=== PATIENT | male | born 1945 | race Caucasian/White ===

== ENCOUNTER 2017-07-29 10:24 | Inpatient (IN) ==
--- NOTE | 2017-07-28 16:22 | Discharge Summary ---
<Nieves Horowitz E - Last Filed: 07/28/17 16:20> Date of Encounter: 07/28/17 - Discharge Diagnosis (1) Rotator cuff tear arthropathy of right shoulder Priority: Primary Status: Chronic (2) Diabetes mellitus Priority: Secondary Status: Chronic Qualifiers: Diabetes mellitus type: type 2 Diabetes mellitus complication status: with unspecified complications Diabetes mellitus manager long term care insulin use: without assisted use Qualified Code(s): E11.8 - Type 2 diabetes mellitus with unspecified complications (3) HTN (hypertension) Priority: Secondary Status: Chronic Qualifiers: Hypertension type: unspecified Qualified Code(s): I10 - Essential (primary ) hypertension (4) MARIA ANTONIA on CPAP Priority: Secondary Status: Chronic (5) COPD (chronic obstructive pulmonary disease) Priority: Secondary Status: Chronic Qualifiers: COPD type: unspecified COPD Qualified Code(s): J44.9 - Chronic obstructive pulmonary disease, unspecified (6) CAD (coronary artery disease) Priority: Secondary Status: Chronic Qualifiers: Coronary Disease-Associated Artery/Lesion type: unspecified vessel or lesion type [place] vs. 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 - Discharge Medications Home Medications: OxyCODONE Immed Rel [Roxicodone 5 MG] 5 mg PO Q6HR PRN 7 Days #28 tablet [Rx] Acetaminophen [Tylenol Arthritis] 1,300 mg PO HS 07/29/17 [History] Acetylcysteine [Nac] 600 mg PO BID 07/29/17 [History] Albuterol Sulfate [Albuterol Inhaler] 2 puff IH Q4H PRN 07/29/17 [History] Aspirin/Calcium Carbonate/Mag [Aspirin Buffered 325 mg Tab] 325 mg PO DAILY [History] Atorvastatin Calcium [Lipitor] 20 mg PO QPM 07/29/17 [History] Budesonide/Formoterol 160/4.5 [Symbicort 160/4.5] 2 puff IH BID 07/29/17 [ History] Cholecalciferol (D-3) [Vitamin D] 1,000 unit PO DAILY 07/29/17 [History] Citalopram Hydrobromide [Citalopram HBr] 20 mg PO DAILY 07/29/17 [History] Furosemide [Lasix] 20 mg PO BID 07/29/17 [History] Hyoscyamine Sulfate 0.125 mcg PO TID 07/29/17 [History] Ipratropium/Albuterol Neb [Duoneb] 3 ml IH QID PRN 07/29/17 [History] Mecobal/Levomefolat Ca/B6 Phos [Foltanx Tablet] 1 tab PO DAILY 07/29/17 [History ] Multivit-Min/FA/Vit K/Lycopene [Hm Mens 50+ Advanced One Daily] 1 tab PO DAILY 07/29/17 [History] [place]-3/Dha/Epa/Fish Oil [Fish Oil 1,000 mg Softgel] 1,000 mg PO DAILY 07/29/17 [History] Pantoprazole Sodium [Protonix] 40 mg PO DAILY 07/29/17 [History] Pioglitazone HCl 30 mg PO DAILY 07/29/17 [History] Ramipril [Altace] 10 mg PO DAILY 07/29/17 [History] Triamcinolone Acetonide 1 appl TP BID 07/29/17 [History] clonazePAM [Klonopin] 0.5 mg PO BID 07/29/17 [History] Allergies/Adverse Reactions: 3 Allergy/AdvReac Type Severity Reaction Status Date / Time succinylcholine Allergy See Verified 07/29/17 11:06 [From Anectine] Comments Primary care physician: PCP NONE - Patient Status Disposition: Home Health Service Condition: Good - Discharge Instructions Follow Up With: NONE,PCP [Non-Partnered Physician] - - Hospital Course Hospital course: Mr. Hoyt is a 72 year old male - Time Spent with Patient Total time spent providing and/or coordinating discharge services: <Freedom Rivero - Last Filed: 07/30/17 06:52> Date of Encounter: 07/30/17 Time of Encounter: 06:52 - Discharge Diagnosis (1) Rotator cuff tear arthropathy of right shoulder Priority: Primary Status: Chronic (2) Diabetes mellitus Priority: Secondary Status: Chronic Qualifiers: Diabetes mellitus type: type 2 Diabetes mellitus complication status: with unspecified complications Diabetes mellitus manager long term care insulin use: without manager long term care use Qualified Code(s): E11.8 - Type 2 diabetes mellitus with unspecified complications (3) HTN (hypertension) Priority: Secondary Status: Chronic Qualifiers: Hypertension type: unspecified Qualified Code(s): I10 - Essential (primary ) hypertension (4) MARIA ANTONIA on CPAP Priority: Secondary Status: Chronic (5) COPD (chronic obstructive pulmonary disease) Priority: Secondary Status: Chronic Qualifiers: COPD type: unspecified COPD Qualified Code(s): J44.9 - Chronic obstructive pulmonary disease, unspecified (6) CAD (coronary artery disease) Priority: Secondary Status: Chronic Qualifiers: Coronary Disease-Associated Artery/Lesion type: [place] artery [place] vs. 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 Hoyt is a 72 year old male Status post right total shoulder replacement The patient had an uneventful postoperative course. They received antibiotics and physical therapy and were discharged in stable condition. There will follow -up in the office in 2 weeks. - Time Spent with Patient Total time spent providing and/or coordinating discharge services:
--- NOTE | 2017-07-28 16:25 | Physician Discharge Referral ---
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 For more information, call the [place] [employer] Quit Line at 1-496-UWWI-NOW. - Dressing/Wound Care Site: right shoulder Type of Dressing/Treatments w/Frequency: Opsite placed. Keep dressing intact until first follow up appointment. If > 50% saturated, notify office, remove dressing and place appropriate dressing back in place. Leave Zipline intact. Opsite dressing is water resistant, not water- proof. OK to shower, but do not get dressing wet. - Diet/Nutrition Diet/Nutrition Orders: Regular - Activity Activity Orders: Up ad savana, Ambulate, Chair, Walker Activity: List: PT/OT. NWB to affected upper extremity. Follow Shoulder Precautions x 6 weeks. Stay in brace during activity and at night. Remove brace during exercises. ICE and elevate extremity frequently throughout the day. - Services Needed Following services are medically necessary services: Nursing, Home Health Aide, Physical Therapy, Occupational Therapy, Med Social Work - Transfer Medications Prescriptions: OxyCODONE Immed Rel [Roxicodone 5 MG] 5 mg PO Q6HR PRN 7 Days #28 tablet PRN Reason: Pain Home Medications: Acetylcysteine [Nac] 10/20/16 [History] Aspirin [Ecotrin] 10/20/16 [History] Atorvastatin Calcium [Lipitor] 10/20/16 [History] Citalopram 10/20/16 [History] Clonazepam 10/20/16 [History] Daliresp 10/20/16 [History] Diclofenac Sodium [Voltaren] 10/20/16 [History] Fish Oil 10/20/16 [History] Foltanx Tablet 10/20/16 [History] Furosemide [Lasix] 40 mg PO DAILY #15 tablet 10/20/16 [Rx] Ipratropium/Albuterol Neb 10/20/16 [History] Levsin 10/20/16 [History] Miralax. 10/20/16 [History] Nexium 10/20/16 [History] One Daily Tablet 10/20/16 [History] Oxygen 10/20/16 [History] Pioglitazone HCl 10/20/16 [History] Proair Hfa 10/20/16 [History] Ramipril 10/20/16 [History] Symbicort 160/4.5 10/20/16 [History] Triamcinolone Acet 0.1% CRM 10/20/16 [History] Tylenol Arthritis 10/20/16 [History] Vision. 10/20/16 [History] OxyCODONE Immed Rel [Roxicodone 5 MG] 5 mg PO Q6HR PRN 7 Days #28 tablet [Rx] Allergies/Adverse Reactions: 3 Allergy/AdvReac Type Severity Reaction Status Date / Time succinylcholine Allergy See Verified 11/17/15 07:39 [From Anectine] Comments Certification: Further, I certify that my clinical findings support that this patient is homebound (i.e. absences from home require considerable and taxing effort and are for medical reasons or [employer] services or infrequently or short duration when for other reasons) because: Homebound Reason: Post-surgery restriction and or conditions limit ability to leave home Attestation: My signature below is to certify that this patient is under my care and that I, or nurse practitioner, or a physician bilingual executive assistant working with me, has a face-to- face encounter with this patient.
[2017-07-29] MEDS ORDERED: *HR* Midazolam HCl 2 MG/2 ML VIAL ONE (10:27)
[2017-07-29] MEDS ORDERED: *HR* FentaNYL (PF) 100 MCG/2 ML VIAL ONE (10:27)
--- NOTE | 2017-07-29 10:27 | History & Physical Report ---
Date of Encounter: 07/29/17 Time of Encounter: 10:27 24 Hour HP Update - Instructions Instructions: If the History and Physical is less than 30 days old and was completed prior to A.M. admission and or procedure and has NOT been updated on calendar day of procedure please complete this update prior to performing procedure. - Update Patient reports changes in Medical Condition: No Changes in examination, assessment, or condition: No Changes in Medication: No Preop tests/diagnostics Reviewed: Yes Surgery Remains Indicated: Yes Consent for Planned Operative Procedure(s) Verified: Yes - Pre-Operative Checklist Preoperative Checklist Indicated: No Prophylactic Antibiotic Ordered: Yes Is VTE Prophylaxis Indicated?: Yes
[2017-07-29] MEDS ORDERED: *HR* Propofol 200 MG/20 ML VIAL IVP ONE (10:30)
[2017-07-29] MEDS ORDERED: Lidocaine -MPF 2% 2 ML VIAL ONE (10:36)
[2017-07-29] MEDS ORDERED: Dexamethasone 4 MG/ML VIAL ONE ×2 (10:36→12:48)
[2017-07-29] MEDS ORDERED: Ondansetron 4 MG/2 ML VIAL ONE (10:36)
[2017-07-29] MEDS ORDERED: ROPIVACAINE HCL/PF 0.5% 30 ML VIAL ONE (10:42)
[2017-07-29] MEDS ORDERED: Albuterol 2.5 MG/3 ML NEBULIZER ONE (11:07)
[2017-07-29] MEDS ORDERED: CeFAZolin Syr 2,000MG/20 ML 2,000 MG/20 ML SYRINGE IVPB ONE (11:08)
[2017-07-29] MEDS ORDERED: Albuterol 2.5 MG/3 ML NEBULIZER IH ONE (11:08)
[2017-07-29] MEDS ORDERED: Lidocaine -MPF 1% 2 ML VIAL ID ONE (11:08)
--- NOTE | 2017-07-29 11:10 | Anesthesia Evaluation PreOp ---
Date of Encounter: 07/29/17 Time of Encounter: 11:10 - Past History Planned Operation: Right Total Shoulder Cardiac History: HTN, Hyperlipidemia, Other (CAD) Pulmonary History: COPD, MARIA ANTONIA Dx (CPAP) TELE RN History: Denies Any Significant HX Other Medical History: Diabetes Type II, GERD, Other Anesthesia History: Past Anesthesia (EGD, Eye sx, Knee repair, CTR, cardiac ablation), Problems (Hard to wake up) Alcohol Use: none Drug use: none Medications and Allergies OxyCODONE Immed Rel [Roxicodone 5 MG] 5 mg PO Q6HR PRN 7 Days #28 tablet [Rx] Acetaminophen [Tylenol Arthritis] 1,300 mg PO HS 07/29/17 [History] Acetylcysteine [Nac] 600 mg PO BID 07/29/17 [History] Albuterol Sulfate [Albuterol Inhaler] 2 puff IH Q4H PRN 07/29/17 [History] Aspirin/Calcium Carbonate/Mag [Aspirin Buffered 325 mg Tab] 325 mg PO DAILY [History] Atorvastatin Calcium [Lipitor] 20 mg PO QPM 07/29/17 [History] Budesonide/Formoterol 160/4.5 [Symbicort 160/4.5] 2 puff IH BID 07/29/17 [ History] Cholecalciferol (D-3) [Vitamin D] 1,000 unit PO DAILY 07/29/17 [History] Citalopram Hydrobromide [Citalopram HBr] 20 mg PO DAILY 07/29/17 [History] Furosemide [Lasix] 20 mg PO BID 07/29/17 [History] Hyoscyamine Sulfate [Hyoscyamine Sulfate] 0.125 mcg PO TID 07/29/17 [History] Ipratropium/Albuterol Neb [Duoneb] 3 ml IH QID PRN 07/29/17 [History] Mecobal/Levomefolat Ca/B6 Phos [Foltanx Tablet] 1 tab PO DAILY 07/29/17 [History ] Multivit-Min/FA/Vit K/Lycopene [Hm Mens 50+ Advanced One Daily] 1 tab PO DAILY 07/29/17 [History] [place]-3/Dha/Epa/Fish Oil [Fish Oil 1,000 mg Softgel] 1,000 mg PO DAILY 07/29/17 [History] Pantoprazole Sodium [Protonix] 40 mg PO DAILY 07/29/17 [History] Pioglitazone HCl [Pioglitazone HCl] 30 mg PO DAILY 07/29/17 [History] Ramipril [Altace] 10 mg PO DAILY 07/29/17 [History] Triamcinolone Acetonide 1 appl TP BID 07/29/17 [History] clonazePAM [Klonopin] 0.5 mg PO BID 07/29/17 [History] 3 Allergy/AdvReac Type Severity Reaction Status Date / Time succinylcholine Allergy See Verified 07/29/17 11:06 [From Anectine] Comments - Meds/Allergy Pre-op Review Medications Reviewed: Yes Allergies Reviewed: Yes Beta Blockers on Current Med List: No Anesthesia Results - Labs Echocardiogram Name: Weston Hoyt Date of Study: 11/08/2016 Impressions: Normal LV systolic function, LVEF 60-65%. Mild concentric left ventricular hypertrophy. Mild left ventricular diastolic dysfunction. Normal right ventricular size and function. No significant valvular dysfunction. No evidence of pulmonary hypertension. Laboratory Tests 07/05/17 07/05/17 07/05/17 11:10 11:10 11:10 WBC 6.5 Hgb 14.3 Hct 45.1 Plt Count 208 INR 1.0 Sodium 140 Potassium 4.1 Chloride 104 Carbon Dioxide 29 BUN 14 Creatinine 0.92 - Imaging EKG: report reviewed (SR) Anesthesia Exam O2 Sat Height 1.63 m Height 1.63 m Weight 87.543 kg Weight 87.543 kg O2 Sat by Pulse Oximetry 96 Vital Signs Temp Pulse Resp BP Pulse Ox 98.4 F 57 18 144/77 96 07/29/17 10:53 07/29/17 10:53 07/29/17 10:53 07/29/17 10:53 07/29/17 10:53 Height: 5'4'' Weight: 193# NPO (# of Hours): > 8 hrs Pain Scale: 0 Pain Scale Used: Numeric (1 - 10) - HEENT Pupil (Motor): Pupils equal, EOMI Mallampati: III Teeth: Normal Oral Opening: Greater than 3 - TELE RN LOC: Oriented TELE RN Motor: Normal RUE, Normal LUE, Normal RLE, Normal LLE, Normal Face TELE RN Sensory: Normal: RUE, LUE, RLE, LLE, Face - Cardiac Rhythm: Regular Murmur: None JVD: No Carotid Bruit: No - Pulmonary Breath Sounds: bilateral Clear Respiratory Effort: Symmetrical Anesthesia Assess/Plan ASA Score: 3 Modified [place] Scale for Level of Consciousness: Cooperative, oriented, and tranquil Anesthetic Plan: General, Regional (Right Brachial Plexus Block) Autologous Blood: Yes Monitoring Plan: Standard Monitors Recovery Plan: PACU
[2017-07-29] MEDS ORDERED: Plasma-Lyte A (PH 7.4) 1,000 ML IVC SCH (11:15)
[2017-07-29] MEDS ORDERED: Acetaminophen IV 1,000 MG/100 ML INFUS..BTL ONE (11:41)
[2017-07-29] MEDS ORDERED: *HR* Labetalol 20 MG/4 ML SYRINGE IVP PRN (11:50)
[2017-07-29] MEDS ORDERED: *HR* Promethazine 25 MG/ML VIAL IVP PRN (11:50)
[2017-07-29] MEDS ORDERED: *HR* HYDROmorphone (PF) 1 MG/ML SYRINGE IVP PRN ×2 (11:50→15:23)
--- NOTE | 2017-07-29 11:56 | Anesthesia Procedures ---
Date of Encounter: 07/29/17 Time of Encounter: 11:45 Procedures: Anesthesia - Nerve Block Procedure Date: 07/29/17 Time: 11:45 Allergies/Adv Reactions: succinylcholine Pre-op Diagnosis: Right Shoulder Rotator Cuff Arthropathy Surgical Procedure: Total Shoulder Replacement, Reverse Bal and Socket Checklist: Correct Patient Identifier, Correct procedure, History checked Correct side: Right Blood Thinner: No Monitor Applied: EKG, BP, Pulse Oximetry Supplemental Oxygen via Nasal Cannula (L/min): 2 Sedation: Fentanyl (mcg): 100 Indication: Post Op Analgesia Pre-op Neuro Deficits: No Block Type: Interscalene Catheter placed: No Sterile Technique: Yes Ultrasound used: Yes Anatomy identified: Yes Visual spread of Local: Yes Neuro Stimulation: No Blood on Needle Aspiration: No Smooth Injection of Local: Yes Pain with Injection of Local: No Prep: Chlorhexadine Needle: 22 x 50 mm Stimuplex Local: Ropivacaine, Other (Ropivicaine 0.5% with 8mg decadron (25ml) total) Volume (cc): 25 Number of Attempts: 1 Complications: None/effective block Vitals: Last Vital Signs Temp 98.4 F 07/29/17 10:53 Pulse 69 07/29/17 11:46 Resp 16 07/29/17 11:46 BP 149/70 07/29/17 11:46 Pulse Ox 98 07/29/17 11:46
[2017-07-29] MEDS ORDERED: EPHEDrine 50 MG/ML VIAL ONE (12:31)
--- NOTE | 2017-07-29 13:13 | Orthopedic Operative Note ---
Date of procedure: 07/29/17 Pre-op diagnosis: Right shoulder cuff tear arthropathy Post-op diagnosis: same Procedure: Procedure: Total Shoulder Replacment Reverse, right Estimated blood loss: 100 cc Hardware: Metal and polyethylene replacement: Arthrex large glenoid baseplate, 2 4.5 screws. 1 6.5 screw, 42+4 glenosphere, 7 humeral stem, poly insert 6 Exam Under anesthesia: Full motion and no instability. Procedural Notes: Irreparable tear supraspinatus tendon. Operative procedure: The patient was brought to the operating room and placed on the operating room table. After general anesthesia was administered the operative shoulder was examined. Findings were noted. The patient was placed in the modified beachchair position. All pressure points were padded appropriately. And the head was stabilized in the neutral position. The operative extremity was prepped and draped in the sterile surgical fashion. The patient received IV antibiotics prior to skin incision. A standard deltopectoral approach was made to the operative shoulder. Incision was made to the skin and subcutaneous tissue,hemo stasis was obtained with Bovie cautery. Using careful blunt dissection the cephalic vein was identified and mobilized medially. The deltopectoral interval was developed and the clavipectoral fascia was incised. The subscap was released off the lesser tuberosity and tagged with #2 FiberWire suture subscap was irreparable. The humerus was dislocated patient noted to have irreparable tear supraspinatus tendon, and the humeral cut was made along the anatomic neck. Anterior and posterior Bankart retractors were placed to expose the glenoid. The glenoid guide was seated and the centering hole was made. It was reamed with the appropriate reamer. The large baseplate was seated and secured with (2) 4.5 screws and one 6.5 screw. The baseplate was irrigated and dried and the 2+4 Glenosphere was seated and secured with the James taper. The James taper was tested and found to be secure the humerus was redislocated and prepared with the diaphyseal reamers, followed by a broaching process up to the appropriate size 7 in the patient's anatomic version. The metaphyseal reamer was then utilized. Trial reduction found the shoulder to be relocatable. Trial components were removed and d The appropriate 7 stem was impacted in place in the patient's anatomic version. Trial reduction found the shoulder to be relocatable and stable with the appropriate 6. Trial component was removed and the real 6 Nikki was seated and secured the shoulder was reduced. The shoulder had excellent motion and excellent stability and no evidence of dislocation. The deep tissue was irrigated with pulse irrigation. The PA closed the shoulder. The deltopectoral interval was closed with a running #1 PDS suture, subcutaneous tissue was irrigated and closed with 0 PDS suture, the skin was closed with Dermabond. The patient was placed in a sterile dressing, abduction brace and extubated. The patient was then transferred to the recovery room in stable condition. Anesthesia: WAN Surgeon: Freedom Rivero Condition: stable Disposition: PACU
[2017-07-29 14:12] LABS: Hematocrit 40.2 % (37.5-50.1)
--- NOTE | 2017-07-29 14:32 | Anesthesia Evaluation Post Op ---
Date of Encounter: 07/29/17 Time of Encounter: 14:32 - Vital Signs Vital Signs: Vital Signs/O2 Sat, Most Current Temp Pulse Resp BP Pulse Ox 97.0 F L 78 16 114/61 95 07/29/17 14:27 07/29/17 14:27 07/29/17 14:27 07/29/17 14:27 07/29/17 14:27 - Lungs Lungs: Clear Ascult./Percussion - Airway Airway: Non-obstructed - Cardiovascular Regular Rate - Mental Status Mental Status: Alert & Oriented, Answers Appropriately - Pain Pain Scale: 0 Pain Scale used: Numeric (1 - 10) - Nausea Vomiting Nausea Vomiting: Not Present - Hydration Hydration: Tolerates oral liquids, Has not voided - Discharge PostOp Status: Transfer Patient to floor
[2017-07-29] MEDS ORDERED: Ringers Solution, Lactated 1,000 ML IVC SCH (15:23)
[2017-07-29] MEDS ORDERED: Sennosides 8.6 MG TABLET PO PRN (15:23)
[2017-07-29] MEDS ORDERED: Naloxone 0.4 MG/ML INJ IVP PRN (15:23)
[2017-07-29] MEDS ORDERED: D5% in Water 1,000 ML IVC PRN (15:23)
[2017-07-29] MEDS ORDERED: Temazepam 15 MG CAPSULE PO PRN (15:23)
[2017-07-29] MEDS ORDERED: MOM Conc 10 ML UD.LIQ PO PRN (15:23)
[2017-07-29] MEDS ORDERED: *HR* Dextrose 50 % in Water (Syg) 50 ML SYRINGE IVP PRN (15:23)
[2017-07-29] MEDS ORDERED: *HR* OxyCODONE Immed Rel 5 MG TABLET PO PRN ×2 (15:23)
[2017-07-29] MEDS ORDERED: Ondansetron 4 MG/2 ML VIAL IVP PRN (15:23)
[2017-07-29] MEDS ORDERED: Dextrose Gel 15 GM PO PRN ×2 (15:23)
[2017-07-29] MEDS: Insulin LISPRO 300 UNITS/3 ML VIAL SQ SCH ×2 (16:52→16:58)
[2017-07-29] MEDS: CeFAZolin Premix DUPLEX 2,000 MG/50 ML BAG IVPB SCH ×2 (16:56→23:43)
[2017-07-29] MEDS: Furosemide 20 MG TABLET PO SCH ×2 (16:58)
[2017-07-29] MEDS: *HR* Enoxaparin 30 MG/0.3 ML SYRINGE SQ SCH (16:59)
[2017-07-29] MEDS ORDERED: Ipratropium/Albuterol Neb 3 ML IH PRN (17:00)
[2017-07-29] MEDS ORDERED: *HR* Enoxaparin 30 MG/0.3 ML SYRINGE SQ SCH (18:00)
[2017-07-29] MEDS: Hyoscyamine SL 0.125 MG TAB.SUBL PO SCH ×2 (19:19→20:57)
[2017-07-29] MEDS: Budesonide/Formoterol 160/4.5 MDI IH SCH ×2 (20:38)
[2017-07-29] MEDS: clonazePAM 0.5 MG TABLET PO SCH (20:57)
[2017-07-29] MEDS: TRIAMCINOLONE ACETONIDE TP SCH (20:58)
[2017-07-29] MEDS ORDERED: *HR* Acetylcysteine 20% 600 MG/3 ML ORAL SYRINGE PO SCH (21:00)
[2017-07-29] MEDS ORDERED: Insulin LISPRO 300 UNITS/3 ML VIAL SQ SCH (21:00)
[2017-07-30] MEDS: *HR* Enoxaparin 30 MG/0.3 ML SYRINGE SQ SCH (06:10)
[2017-07-30 06:47] VITALS: BP 131/79
--- NOTE | 2017-07-30 06:53 | Orthopedics Progress Note ---
Date of Encounter: 07/30/17 Time of Encounter: 06:52 - Assessment and Plan (1) Rotator cuff tear arthropathy of right shoulder Current Visit: No Status: Chronic (2) Diabetes mellitus Current Visit: No Status: Chronic Qualifiers: Diabetes mellitus type: type 2 Diabetes mellitus complication status: with unspecified complications Diabetes mellitus superintendent container terminal insulin use: without superintendent container terminal use Qualified Code(s): E11.8 - Type 2 diabetes mellitus with unspecified complications (3) HTN (hypertension) Current Visit: No Status: Chronic Qualifiers: Hypertension type: unspecified Qualified Code(s): I10 - Essential (primary ) hypertension (4) MARIA ANTONIA on CPAP Current Visit: No Status: Chronic (5) COPD (chronic obstructive pulmonary disease) Current Visit: No Status: Chronic Qualifiers: COPD type: unspecified COPD Qualified Code(s): J44.9 - Chronic obstructive pulmonary disease, unspecified (6) CAD (coronary artery disease) Current Visit: No Status: Chronic Qualifiers: Coronary Disease-Associated Artery/Lesion type: [place] artery [place] vs. 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 Afebrile vital signs stable. Operative extremity: Neurovascularly intact Dressing clean dry and intact Calves nontender Assessment and plan: Continue with postoperative care Discharged today Objective Vital signs: Vital Signs Temp Pulse Resp BP Pulse Ox 07/30/17 06:45 98.1 F 65 18 131/79 93 07/30/17 04:03 97.8 F 65 15 126/70 94 07/29/17 23:59 97.6 F 71 18 115/66 93 07/29/17 20:38 17 93 07/29/17 19:50 98.3 F 76 17 109/48 93 07/29/17 17:03 97.7 F 75 16 126/65 93 07/29/17 15:40 92 07/29/17 15:35 97.7 F 76 14 116/60 92 07/29/17 15:00 97.9 F 79 14 117/60 93 07/29/17 14:37 74 16 122/62 96 07/29/17 14:27 97.0 F L 78 16 114/61 95 07/29/17 14:17 75 14 108/59 98 07/29/17 14:07 79 16 118/64 94 07/29/17 13:57 97.2 F L 81 16 121/66 97 07/29/17 13:47 83 14 116/65 93 07/29/17 13:37 88 16 108/62 96 07/29/17 13:27 98.0 F 89 14 111/59 98 07/29/17 12:11 97 16 135/77 95 07/29/17 12:00 59 12 114/65 97 07/29/17 11:59 45 106/58 95 07/29/17 11:46 69 16 149/70 98 07/29/17 11:14 18 96 07/29/17 10:53 98.4 F 57 18 144/77 96 Intake and Output 07/29/17 07/29/17 07/30/17 15:59 23:59 07:59 Intake Total 450 / 450 1200 / 1200 Output Total 100 / 100 Balance -100 / -100 450 / 450 1200 / 1200 Intake: IV Fluids 50 / 50 900 / 900 Lactated Ringers 1,000 ML @ 75 900 / 900 mls/hr IVC .[id number] ELENA Rx#: [id number] Ancef Premix DUPLEX 2,000 mg In 50 / 50 50 ml @ 100 mls/hr IVPB Q8HR ELENA Rx#:[id number] Oral 400 / 400 300 / 300 Output: Estimated Blood Loss 100 / 100 Other: Meal Dinner Percent of Meal Consumed 50% # Voids 2 1 1 Weight 87.543 kg Blood Glucose* 176 248 - Labs CBC & BMP: 07/29/17 13:50 Labs: Abnormal lab results POC Glucose 102 (58-89) H 07/29/17 11:26 - VTE Documentation of Mechanical Device: Venous foot pump, device Consult Discharge Plan - Plan Referrals: NONE,PCP [Non-Partnered Physician] -
[2017-07-30 07:24] LABS: Hematocrit 39.3 % (37.5-50.1); Hemoglobin 12.7 g/dL (12.9-16.9)
[2017-07-30] MEDS: Insulin LISPRO 300 UNITS/3 ML VIAL SQ SCH (07:50)
[2017-07-30] MEDS ORDERED: Multivit/Ca/Min/Fe/FA 1 TAB TABLET PO SCH (09:00)
[2017-07-30] MEDS ORDERED: (Omega-3/Dha/Epa/Fish Oil [Fish Oil 1,000 Mg Softgel]) PO SCH (09:00)
[2017-07-30] MEDS ORDERED: *HR* Pioglitazone 30 MG TABLET PO SCH (09:00)
[2017-07-30] MEDS ORDERED: Cholecalciferol (D-3) 1,000 UNIT TABLET PO SCH (09:00)
[2017-07-30] MEDS ORDERED: Aspirin Enteric Coated 325 MG Tablet PO SCH (09:00)
[2017-07-30] MEDS: TRIAMCINOLONE ACETONIDE TP SCH (09:05)
[2017-07-30] MEDS: clonazePAM 0.5 MG TABLET PO SCH (09:09)
[2017-07-30] MEDS: Furosemide 20 MG TABLET PO SCH (09:09)
[2017-07-30] MEDS: Hyoscyamine SL 0.125 MG TAB.SUBL PO SCH (09:10)
--- NOTE | 2017-07-30 16:24 | Electrocardiograph Report ---
[address] [address] Test Date: 2017-07-29 Pat Name: Weston Hoyt Department: 101 Room: [facility] Gender: M Deli Clerk: RADHIKA : 1945 Requested By: Bakari Ross Order Number: [id number] Reading MD: Blaine Rosado DO Measurements Intervals [place] Rate: 77 P: 53 MA: 166 QRS: -5 QRSD: 104 T: 6 QT: 418 QTc: 450 Interpretive Statements SINUS RHYTHM Electronically Signed On 07-30-2017 16:22:57 EST by Blaine Rosado DO
--- NOTE | 2017-07-30 16:31 | Electrocardiograph Report ---
[place] [address] Test Date: 2017-07-29 Pat Name: Weston Hoyt Department: 114 Room: [facility] Gender: M Physical Therapy Technician: JJG : 1945 Requested By: Freedom Rivero Order Number: [id number] Reading MD: Blaine Rosado DO Measurements Intervals [place] Rate: 73 P: 53 MO: 165 QRS: 0 QRSD: 103 T: 2 QT: 412 QTc: 438 Interpretive Statements SINUS RHYTHM Electronically Signed On 07-30-2017 16:29:52 EST by Blaine Rosado DO
== END 2017-07-30 11:45 | disposition home health service (06) | DRG 483 ==
LOC: SAMDAY 10:24 → 3NENU 14:56
PROVIDERS: ADMIT Orthopaedic Surgery; ATTEND Orthopaedic Surgery